=== PATIENT | female | born 2000 | race African-American/Black ===

== ENCOUNTER 2022-12-06 06:46 | Inpatient (IN) | payer OTHER ==
--- OUTSIDE RECORDS SUMMARY | 2022-12-06 06:49 | XMS REPORT | Continuity of Care Document ---
:2000 Author Organization [facility] t Address [address]. [address] [place] [address] Care Team Providers Name Role Phone No, Pcp [facility] Primary Care Physician Unavailable RICARDO AGUILERA Attending Clinician Unavailable NELLIE GARCIA Attending Clinician Unavailable RICARDO AGUILERA Admitting Clinician Unavailable SHEREE SIN Admitting Clinician Unavailable Problems Condition Condition Condition Status Onset Resolution Last Treating Co mments Source Name Details Category Date Date Treatment Clinician Date Acute Acute Disease [facility] Allergies, Adverse Reactions, Alerts This patient has no known allergies or adverse reactions. Social History Social Habit Start Date Stop Date Quantity Comments Source History [facility] Alcohol Std Drinks Medica l Center History [facility] Alcohol Binge Medical Sanjay ter History [facility] Alcohol Comment Medical C enter Tobacco use and 2019-06-30 2019-06-[address] [facility] exposure 00:00:00 [facility]:00 [facility] Alcohol intake 2019-06-30 2019-06-[address] [facility] 00:[facility] 00:[facility]:00 non-drinker of Medical Ce nter alcohol (finding) History SDOH 2019-06-30 2019-06-[address] [facility] Alcohol Frequency 00:00:00 00:00:00 Medical Center Sex Assigned At [address] 00[facility]00 [facility] Smoking Status Start Date Stop Date Source Never smoker [facility] Medications This patient has no known medications. Immunizations Ordered Immunization Filled Immunization Date Status Commen ts Source Name Name Lonnie Bae-QIV 2019-06-[address] [facility] PF 3YR+ ([id number]) 00:00:00 Medical Center Procedures This patient has no known procedures. Encounters Start End Encounter Admission Attending Care Care Encounter Source Date/Time Date/Time Type Type Clinicians Facility Department ID 2020-05-18 2020-05-20 Inpatient E [facility] [id number] 08:55:00 15:48:00 [facility] Results Test Description Test Time Test Comments Results Result Comments Source BLOOD CULTURE 2019-07-05 20:00:00 Test Item Value Reference Range Interpretation Comme nts CULTURE (BEAKER) (test code = 1095) No growth in 5 days BLOOD [id number] 20:00:00 Test Item Value Reference Range Interpretation Comments CULTURE (BEAKER) (test No growth in 5 days code = 1095) CBC W/PLT COUNT & AUTO [id number] 11:13:00 Test Item Value Reference Range Interpretation Comments WHITE BLOOD CELL COUNT (BEAKER) 11.7 K/ L 3.5-10.5 H (test code = 775) RED BLOOD CELL COUNT (BEAKER) 2.50 M/ L 3.93-5.22 L (test code = 761) HEMOGLOBIN (BEAKER) (test code = 8.7 GM/DL 11.2-15.7 L 410) HEMATOCRIT (BEAKER) (test code = 24.3 % 34.1-44.9 L 411) MEAN CORPUSCULAR VOLUME (BEAKER) 97.2 fL 79.4-94.8 H (test code = 753) MEAN CORPUSCULAR HEMOGLOBIN 34.8 pg 25.6-32.2 H (BEAKER) (test code = 751) MEAN CORPUSCULAR HEMOGLOBIN CONC 35.8 GM/DL 32.2-35.5 H (BEAKER) (test code = 752) RED CELL DISTRIBUTION WIDTH 17.5 % 11.7-14.4 H (BEAKER) (test code = 412) PLATELET COUNT (BEAKER) (test 323 K/CU MM 150-450 code = 756) MEAN PLATELET VOLUME (BEAKER) 10.9 fL 9.4-12.3 (test code = 754) NUCLEATED RED BLOOD CELLS 3 /100 WBC 0-0 H (BEAKER) (test code = 413) NEUTROPHILS RELATIVE PERCENT 62 % (BEAKER) (test code = 429) LYMPHOCYTES RELATIVE PERCENT 21 % (BEAKER) (test code = 430) MONOCYTES RELATIVE PERCENT 12 % (BEAKER) (test code = 431) EOSINOPHILS RELATIVE PERCENT 4 % (BEAKER) (test code = 432) BASOPHILS RELATIVE PERCENT 1 % (BEAKER) (test code = 437) NEUTROPHILS ABSOLUTE COUNT 7.23 K/ L 1.56-6.13 H (BEAKER) (test code = 670) LYMPHOCYTES ABSOLUTE COUNT 2.51 K/ L 1.18-3.74 (BEAKER) (test code = 414) MONOCYTES ABSOLUTE COUNT (BEAKER) 1.39 K/ L 0.24-0.36 H (test code = 415) EOSINOPHILS ABSOLUTE COUNT 0.50 K/ L 0.04-0.36 H (BEAKER) (test code = 416) BASOPHILS ABSOLUTE COUNT (BEAKER) 0.06 K/ L 0.01-0.08 (test code = 417) IMMATURE GRANULOCYTES-RELATIVE 0 % 0-1 PERCENT (BEAKER) (test code = 2801) COMPREHENSIVE METABOLIC [id number] 05:50:00 Test Item Value Reference Range Interpretation Comments TOTAL PROTEIN 6.3 gm/dL 6.0-8.3 (BEAKER) (test code = 770) ALBUMIN (BEAKER) 3.8 g/dL 3.5-5.0 (test code = 1145) ALKALINE PHOSPHATASE 53 U/L 40-150 (BEAKER) (test code = 346) BILIRUBIN TOTAL 2.4 mg/dL 0.2-1.2 H (BEAKER) (test code = 377) SODIUM (BEAKER) (test 139 meq/L 136-145 code = 381) POTASSIUM (BEAKER) 3.8 meq/L 3.5-5.1 (test code = 379) CHLORIDE (BEAKER) 110 meq/L 98-107 H (test code = 382) CO2 (BEAKER) (test 24 meq/L 22-29 code = 355) BLOOD UREA NITROGEN 8 mg/dL 7-21 (BEAKER) (test code = 354) CREATININE (BEAKER) 0.68 mg/dL 0.57-1.25 (test code = 358) GLUCOSE RANDOM 84 mg/dL 70-105 (BEAKER) (test code = 652) CALCIUM (BEAKER) 8.7 mg/dL 8.4-10.2 (test code = 697) AST (SGOT) (BEAKER) 25 U/L 5-34 (test code = 353) ALT (SGPT) (BEAKER) 14 U/L 6-55 (test code = 347) EGFR (BEAKER) (test 135 ESTIMATE D GFR IS code = 1092) mL/min/1.73 sq NOT ACCURA TE m CREATININE CLEARANCE IN PREDICTING GLOMERULAR FILTRATION RATE . ESTIMATED GFR I S NOT APPLICABLE FOR DIALYSIS PATIEN TS. Specimen slightly ictericCBC (HEMOGRAM ONLY)2019-07-01 05:46:00 Test Item Value Reference Range Interpretation Comments WHITE BLOOD CELL COUNT (BEAKER) 12.8 K/ L 3.5-10.5 H (test code = 775) RED BLOOD CELL COUNT (BEAKER) 1.74 M/ L 3.93-5.22 L (test code = 761) HEMOGLOBIN (BEAKER) (test code = 6.2 GM/DL 11.2-15.7 L 410) HEMATOCRIT (BEAKER) (test code = 17.3 % 34.1-44.9 L 411) MEAN CORPUSCULAR VOLUME (BEAKER) 99.4 fL 79.4-94.8 H (test code = 753) MEAN CORPUSCULAR HEMOGLOBIN 35.6 pg 25.6-32.2 H (BEAKER) (test code = 751) MEAN CORPUSCULAR HEMOGLOBIN CONC 35.8 GM/DL 32.2-35.5 H (BEAKER) (test code = 752) RED CELL DISTRIBUTION WIDTH 18.8 % 11.7-14.4 H (BEAKER) (test code = 412) PLATELET COUNT (BEAKER) (test 308 K/CU MM 150-450 code = 756) MEAN PLATELET VOLUME (BEAKER) 11.2 fL 9.4-12.3 (test code = 754) NUCLEATED RED BLOOD CELLS 4 /100 WBC 0-0 H (BEAKER) (test code = 413) RETICULOCYTE [id number] 05:34:00 Test Item Value Reference Range Interpretation Comments RETICULOCYTE COUNT PCT (BEAKER) (test 16.2 % 0.5-1.7 H code = 575) RAD, CHEST, PA OR AP, 1 [id number] 22:03:00Reason for exam:->Sickle cell crisisFINAL REPORT AP view of the chest dated 06/30/2019 CLINICAL INFORMATION: Sickle cell crisis Comment: Heart is normal in size. Pulmonary vasculature is unremarkable. Lungs are clear.No pulmonary infiltrate or pleural effusion is present. Impression: No active cardiopulmonary disease. Signed: Jack Valencia MDReport Verified Date/Time: 06/30/2019 22:03:51 Reading Location: [address] Consult Reading Room URINALYSIS W/ REFLEX URINE [id number] 16:15:00 Test Item Value Reference Range Interpretation Comments COLOR (BEAKER) (test code = 470) Yellow CLARITY (BEAKER) (test code = 469) Hazy SPECIFIC GRAVITY UA (BEAKER) (test 1.010 1.001-1.035 code = 468) PH UA (BEAKER) (test code = 467) 5.5 5.0-8.0 PROTEIN UA (BEAKER) (test code = Negative Negative 464) GLUCOSE UA (BEAKER) (test code = Negative Negative 365) KETONES UA (BEAKER) (test code = Negative Negative 371) BILIRUBIN UA (BEAKER) (test code = Negative Negative 462) BLOOD UA (BEAKER) (test code = 461) Negative Negative NITRITE UA (BEAKER) (test code = Negative Negative 465) LEUKOCYTE ESTERASE UA (BEAKER) Large Negative A (test code = 466) UROBILINOGEN UA (BEAKER) (test code 0.2 mg/dL 0.2-1.0 = 463) RBC UA (BEAKER) (test code = 519) 0 /HPF WBC UA (BEAKER) (test code = 520) 55 /HPF BACTERIA (BEAKER) (test code = 517) Many MUCUS (BEAKER) (test code = 1574) Rare SQUAMOUS EPITHELIAL (BEAKER) (test 2 /HPF code = 516) SOURCE(BEAKER) (test code = 2795) SCREEN, [id number] 16:15:00 Test Item Value Reference Range Interpretation Comments TEST URINE (BEAKER) (test Negative code = 583) CBC W/PLT COUNT & AUTO [id number] 09:42:00 Test Item Value Reference Range Interpretation Comments WHITE BLOOD CELL COUNT (BEAKER) 20.0 K/ L 3.5-10.5 H (test code = 775) RED BLOOD CELL COUNT (BEAKER) 2.08 M/ L 3.93-5.22 L (test code = 761) HEMOGLOBIN (BEAKER) (test code = 7.5 GM/DL 11.2-15.7 L 410) HEMATOCRIT (BEAKER) (test code = 20.7 % 34.1-44.9 L 411) MEAN CORPUSCULAR VOLUME (BEAKER) 99.5 fL 79.4-94.8 H (test code = 753) MEAN CORPUSCULAR HEMOGLOBIN 36.1 pg 25.6-32.2 H (BEAKER) (test code = 751) MEAN CORPUSCULAR HEMOGLOBIN CONC 36.2 GM/DL 32.2-35.5 H (BEAKER) (test code = 752) RED CELL DISTRIBUTION WIDTH 18.7 % 11.7-14.4 H (BEAKER) (test code = 412) PLATELET COUNT (BEAKER) (test 345 K/CU MM 150-450 code = 756) MEAN PLATELET VOLUME (BEAKER) 10.7 fL 9.4-12.3 (test code = 754) NUCLEATED RED BLOOD CELLS 1 /100 WBC 0-0 H (BEAKER) (test code = 413) (CELLAVISION MANUAL DIFF)2019-06-30 09:42:00 Test Item Value Reference Range Interpretation Comments NEUTROPHILS - REL 65 % (CELLAVISION)(BEAKER) (test code = 2816) LYMPHOCYTES - REL 19 % (CELLAVISION)(BEAKER) (test code = 2817) MONOCYTES - REL 12 % (CELLAVISION)(BEAKER) (test code = 2818) BASOPHILS - REL 1 % (CELLAVISION)(BEAKER) (test code = 2820) MYELOCYTES - REL 2 % 0-0 H (CELLAVISION)(BEAKER) (test code = 2822) NEUTROPHILS - ABS 13.00 K/ul 1.56-6.13 H (CELLAVISION)(BEAKER) (test code = 2830) LYMPHOCYTES - ABS 3.80 K/ul 1.18-3.74 H (CELLAVISION)(BEAKER) (test code = 2831) MONOCYTES - ABS 2.40 K/uL 0.24-0.36 H (CELLAVISION)(BEAKER) (test code = 2832) BASOPHILS - ABS 0.20 K/uL 0.01-0.08 H (CELLAVISION)(BEAKER) (test code = 2835) MYELOCYTES-ABS 0.40 K/uL 0.00-0.00 H (CELLAVISION)(BEAKER) (test code = 2837) TOTAL COUNTED (BEAKER) (test code 100 = 1351) MANUAL NRBC PER 100 CELLS 3 /100 WBC 0-0 H (BEAKER) (test code = 1353) WBC MORPHOLOGY (BEAKER) (test Normal code = 487) PLT MORPHOLOGY (BEAKER) (test Normal code = 486) POLYCHROMATOPHILLIC RBCS(BEAKER) 3+ many (test code = 478) ANISOCYTOSIS (BEAKER) (test code 1+ few = 961) MACROCYTES (BEAKER) (test code = 1+ few 964) POIKILOCYTES (BEAKER) (test code 1+ few = 966) TARGET CELLS (BEAKER) (test code 1+ few = 480) SICKLE CELLS (BEAKER) (test code 2+ moderate = 767) SCHULTZ-JOLLY BODIES (BEAKER) 1+ few (test code = 475) ARTIFACT (CELLAVISION)(BEAKER) Present (test code = 3432) PLATELET CONCENTRATION Adequate (CELLAVISION)(BEAKER) (test code = 3438) Received comment: User comments: Slide comments:BASIC METABOLIC [id number] 08:00:00 Test Item Value Reference Range Interpretation Comments SODIUM (BEAKER) (test 139 meq/L 136-145 code = 381) POTASSIUM (BEAKER) 4.0 meq/L 3.5-5.1 (test code = 379) CHLORIDE (BEAKER) 109 meq/L 98-107 H (test code = 382) CO2 (BEAKER) (test 24 meq/L 22-29 code = 355) BLOOD UREA NITROGEN 10 mg/dL 7-21 (BEAKER) (test code = 354) CREATININE (BEAKER) 0.65 mg/dL 0.57-1.25 (test code = 358) GLUCOSE RANDOM 97 mg/dL 70-105 (BEAKER) (test code = 652) CALCIUM (BEAKER) 9.5 mg/dL 8.4-10.2 (test code = 697) EGFR (BEAKER) (test INSUFFIC IENT CLINICAL code = 1092) DATA TO CALCULA TE ESTIMATED GFR. LACTATE DEHYDROGENASE (LDH)2019-06-30 07:49:00 Test Item Value Reference Range Interpretation Comments LACTATE DEHYDROGENASE (BEAKER) (test 445 U/L 125-220 H code = 635) RETICULOCYTE [id number] 07:38:00 Test Item Value Reference Range Interpretation Comments RETICULOCYTE COUNT PCT (BEAKER) (test 15.9 % 0.5-1.7 H code = 575)
[2022-12-06] MEDS ORDERED: ONDANSETRON 4 MG/2 ML VIAL ONE (07:27)
[2022-12-06] MEDS ORDERED: NA CHLORIDE 0.9% 1,000 ML ONE ×2 (07:27→14:18)
[2022-12-06] MEDS ORDERED: HYDROMORPHONE HCL 1 MG/ML INJ ONE ×5 (07:27→13:21)
[2022-12-06 07:52] LABS: Absolute Lymphocytes (CBC) 3.6 K/uL (0.7-4.9); Hematocrit 23.7 % (36.0-45.0); Lymphocytes % 15.1 % (15.3-44.8); MCV 100.8 fL (80-100); MPV 8.2 fL (7.6-11.3); RBC Red Blood Cell Count 2.35 M/uL (3.86-4.86)
[2022-12-06 08:02] LABS: Potassium 3.8 mmol/L (3.5-5.1); Troponin High Sensitivity 3.1 pg/mL (<58.9)
--- NOTE | 2022-12-06 08:08 | RAD REPORT ---
EXAM DESCRIPTION: RAD - Chest Single View - 12/06/2022 7:57 am CLINICAL HISTORY: CHEST PAIN COMPARISON: None FINDINGS: Lines: None. Lungs: Question some subtle mild bilateral airspace opacities present in the mid lungs and lung bases . Pleural: No significant pleural effusions or pneumothorax. Cardiac: The heart size is within normal limits. Mediastinum: Within normal limits. Bones: No acute fractures. Other: None IMPRESSION: Questionable subtle airspace disease bilaterally could reflect pneumonia.
[2022-12-06] MEDS ORDERED: NA CHLORIDE 0.9% 250 ML ONE ×3 (08:40→23:33)
--- NOTE | 2022-12-06 08:45 | ER ---
Nurse's Notes [facility] Name: Jan Krueger Age: 22 yrs Sex: Female : 2000 Arrival Date: 12/06/2022 Time: 06:49 Bed 8 Private MD: Diagnosis: Sickle-cell thalassemia with acute chest syndrome Presentation: 12/06 07:06 Chief complaint: Patient states: "I think I am in sickle cell crisis.". Coronavirus vc1 screen: Vaccine status: Patient reports receiving the 2nd dose of the covid vaccine. [employer] At this time, the client does not indicate any symptoms associated with coronavirus-19. Ebola Screen: Patient negative for fever greater than or equal to 101.5 degrees Fahrenheit, and additional compatible Ebola Virus Disease symptoms Patient denies exposure to infectious person. Patient denies travel to an Ebola-affected area in the 21 days before illness onset. No symptoms or risks identified at this time. Initial Sepsis Screen: Does the patient meet any 2 criteria? RR > 20 per min. HR > 90 bpm. Yes Does the patient have a suspected source of infection? No. Patient's initial sepsis screen is negative. Risk Assessment: Do you want to hurt yourself or someone else? Patient reports no desire to harm self or others. Onset of symptoms was December 05, 2022. 07:06 Method Of Arrival: Wheelchair vc1 07:06 Acuity: MAURISIO 3 vc1 Triage Assessment: 07:09 General: Appears uncomfortable, Behavior is calm, cooperative, appropriate for age. vc1 Pain: Complains of pain in "all over" Pain currently is 10 out of 10 on a pain scale. EENT: No deficits noted. No signs and/or symptoms were reported regarding the EENT system. Neuro: Level of Consciousness is obeys commands, Oriented to person, place, time, situation, Appropriate for age. Cardiovascular: No deficits noted. Respiratory: Airway is patent Respiratory effort is even, unlabored, Respiratory pattern is symmetrical, tachypnea. GI: No deficits noted. No signs and/or symptoms were reported involving the gastrointestinal system. : No deficits noted. No signs and/or symptoms were reported regarding the genitourinary system. Derm: No deficits noted. No signs and/or symptoms reported regarding the dermatologic system. Musculoskeletal: No deficits noted. No signs and/or symptoms reported regarding the musculoskeletal system. NEUROLOGY TECHNOLOGIST: 07:11 LMP N/A - control method vc1 Historical: - Allergies: 07:08 [place] (Prunus Persica); vc1 - PMHx: 07:08 Sickle Cell Crisis; vc1 - PSHx: 07:08 None; vc1 - Immunization history:: Client reports receiving the 2nd dose of the Covid vaccine. - Social history:: Smoking status: Patient denies any tobacco usage or history of. Screenin:11 Abuse screen: Denies threats or abuse. Nutritional screening: No deficits noted. vc1 Tuberculosis screening: No symptoms or risk factors identified. 07:25 [facility] ED Fall Risk Assessment (Adult) History of falling in the last 3 months, vg1 including since admission No falls in past 3 months (0 pts) Confusion or Disorientation No (0 pts) Intoxicated or Sedated No (0 pts) Impaired Gait No (0 pts) Mobility Assist Device Used No (0 pt) Altered Elimination No (0 pt) Score/Fall Risk Level 0 - 2 = Low Risk Oriented to surroundings, Maintained a safe environment, Educated pt \\T\\ family on fall prevention, incl call for assistance when getting out of bed, Assessed \\T\\ reinforced patient's understanding of fall precautions. Assessment: 07:25 General: Appears uncomfortable, Behavior is cooperative, crying. Pain: Complains of vg1 pain in generalized body pain Pain currently is 10 out of 10 on a pain scale. Neuro: Level of Consciousness is awake, alert, obeys commands, Oriented to person, place, time, situation. Cardiovascular: Patient's skin is warm and dry. Respiratory: Airway is patent Respiratory effort is even, unlabored. GI: Abdomen is flat, Patient currently denies nausea, vomiting. : No signs and/or symptoms were reported regarding the genitourinary system. EENT: No signs and/or symptoms were reported regarding the EENT system. EENT: No signs and/or symptoms were reported regarding the EENT system. Derm: Skin is pink, warm \\T\\ dry. Musculoskeletal: Circulation, motion, and sensation intact. 08:15 Reassessment: Pt stated generalized body pain is 10/10; provider aware. vg1 08:47 Reassessment: Family stated pt was recently seen at urgent care and was prescribed vg1 amoxicillin for cough, last dose was yesterday and was negative for covid/flu/rsv; provider notified. 09:24 Reassessment: Patient appears in no apparent distress at this time. No changes from vg1 previously documented assessment. Patient and/or family updated on plan of care and expected duration. Pain level reassessed. Patient is alert, oriented x 3, equal unlabored respirations, skin warm/dry/pink. 10:36 Reassessment: Patient appears in no apparent distress at this time. No changes from vg1 previously documented assessment. Patient and/or family updated on plan of care and expected duration. Pain level reassessed. Patient is alert, oriented x 3, equal unlabored respirations, skin warm/dry/pink. 10:50 Reassessment: Pt stated generalized body pain, feels like "pins and needles" and vg1 "pressure"; provider notified. 11:40 Reassessment: Patient appears in no apparent distress at this time. No changes from vg1 previously documented assessment. Patient is alert, oriented x 3, equal unlabored respirations, skin warm/dry/pink. lab stated pt blood has antibodies and it needs to be sent to [place]; pt aware of wait time. 11:50 Reassessment:. Reassessment: HR 165; Pt stated hip pain; provider notified. New orders vg1 for Dilaudid 1 mg IVP x1. General: Appears distressed, Behavior is crying. 13:15 Reassessment: No changes from previously documented assessment. Patient is alert, vg1 oriented x 3, equal unlabored respirations, skin warm/dry/pink. Reassessment: HR 150; pain 10/10, BOB hips, provider notified. General: Appears distressed, Behavior is crying. Vital Signs: 07:06 BP 137 / 92; Pulse 97; Resp 24; Temp 97.4; Pulse Ox 95% on R/A; Weight 56.7 kg; Height vc1 5 ft. 2 in. (157.48 cm); Pain 10/10; 07:30 BP 128 / 90; Pulse 79; Resp 14; Pulse Ox 98% on R/A; vg1 08:00 BP 126 / 80; Pulse 69; Resp 14; Temp 98.4(O); Pulse Ox 97% on R/A; vg1 08:30 BP 132 / 77; Pulse 80; Resp 15; Pulse Ox 98% on R/A; vg1 09:30 BP 127 / 86; Pulse 93; Resp 14; Pulse Ox 98% on R/A; vg1 10:30 BP 121 / 83; Pulse 96; Resp 14; Pulse Ox 97% on R/A; vg1 11:30 BP 125 / 78; Pulse 89; Resp 14; Pulse Ox 98% on R/A; vg1 12:30 BP 113 / 77; Pulse 97; Resp 18; Pulse Ox 97% on R/A; vg1 13:00 BP 123 / 82; Pulse 101; Resp 12; Pulse Ox 96% on R/A; vg1 07:06 Body Mass Index 22.86 (56.70 kg, 157.48 cm) vc1 ED Course: 06:49 Patient arrived in ED. jj6 07:05 Lorenzo Fuller MD is Attending Physician. sp3 07:08 Triage completed. vc1 07:11 Arm band placed on right wrist. vc1 07:19 Celestina Waller, RN is Primary Nurse. vg1 07:25 Patient has correct armband on for positive identification. Bed in low position. Call vg1 light in reach. Side rails up X 1. Client placed on continuous cardiac and pulse oximetry monitoring. NIBP monitoring applied. 07:25 Initial lab(s) drawn, by me, sent to lab. Inserted saline lock: 20 gauge in right vg1 antecubital area, using aseptic technique. Blood collected. 08:44 Syed Pineda MD is Hospitalizing Provider. sp3 09:05 First set of blood cultures drawn by me. ss 09:08 Inserted saline lock: 22 gauge in left forearm, using aseptic technique. Blood vg1 collected. 09:08 Second set of blood cultures drawn by me. vg1 09:46 Lab(s) recollected, by me, sent to lab. vg1 14:38 No provider procedures requiring assistance completed. Patient admitted, IV remains in vg1 place. Administered Medications: 07:31 Drug: NS 0.9% 1000 ml Route: IV; Rate: 1 bolus; Site: right antecubital; vg1 08:23 Follow up: IV Status: Infusion continued; IV Intake: 1000ml vg1 07:31 Drug: Zofran (Ondansetron) 4 mg Route: IVP; Site: right antecubital; vg1 08:23 Follow up: Response: No adverse reaction vg1 07:33 Drug: Dilaudid (HYDROmorphone) 1 mg Route: IVP; Site: right antecubital; vg1 08:23 Follow up: Response: No adverse reaction; No change in condition vg1 08:21 Drug: Dilaudid (HYDROmorphone) 1 mg Route: IVP; Site: right antecubital; vg1 15:09 Follow up: Response: No adverse reaction; No change in condition vg1 09:18 Drug: Rocephin - (cefTRIAXone) 1 grams Route: IVPB; Infused Over: 30 mins; Site: left vg1 forearm; 09:45 Follow up: IV Status: Completed infusion; IV Intake: 50ml vg1 09:41 Drug: Zithromax (azithromycin) 500 mg Route: IVPB; Infused Over: 1 hrs; Site: left vg1 forearm; 10:45 Follow up: IV Status: Infusion continued; IV Intake: 250ml vg1 10:54 Drug: Dilaudid (HYDROmorphone) 1 mg Route: IVP; Site: right antecubital; vg1 11:45 Follow up: Response: No adverse reaction; No change in condition vg1 11:54 Drug: Dilaudid (HYDROmorphone) 1 mg Route: IVP; Site: right antecubital; vg1 13:15 Follow up: Response: No adverse reaction; No change in condition vg1 13:19 Drug: Dilaudid (HYDROmorphone) 1 mg Route: IVP; Site: right antecubital; vg1 15:08 Follow up: Response: No adverse reaction; Marked relief of symptoms vg1 Medication: 07:11 VIS not applicable for this client. vc1 Intake: 08:23 IV: 1000ml; Total: 1000ml. vg1 09:45 IV: 50ml; Total: 1050ml. vg1 10:45 IV: 250ml; Total: 1300ml. vg1 Outcome: 08:44 Decision to Hospitalize by Provider. sp3 14:37 Admitted to Med/surg accompanied by tech, via wheelchair, room 218, with chart, Report vg1 called to Debbi CALHOUN 14:37 Condition: good 14:37 Instructed on the need for admit. 15:08 Patient left the ED. vg1 Signatures: Gertrude Polanco RN RN Celestina Samuel RN RN vg1 Lorenzo Fuller MD MD sp3 Kate Morse jj6 Kirsten Villa, RN RN vc1 Corrections: (The following items were deleted from the chart) 08:26 08:00 BP 126 / 80; Pulse 69bpm; Resp 14bpm; Pulse Ox 97% RA; vg1 vg1 11:58 11:50 Reassessment: Pt stated hip pain; provider notified. New orders for Dilaudid 1 mg vg1 IVP x1 vg1 13:24 13:15 Reassessment: pain 07/14, BOB hips, provider notified. vg1 vg1
--- NOTE | 2022-12-06 08:46 | EDPHYS ---
Physician Documentation [facility] Name: Jan Krueger Age: 22 yrs Sex: Female : 2000 Arrival Date: 12/06/2022 Time: 06:49 Bed 8 Private MD: ED Physician Lorenzo Fuller HPI: 12/06 08:20 This 22 yrs old Black Female presents to ER via Wheelchair with complaints of Pain All sp3 Over. 08:20 22-year-old female with a history of sickle cell disease presents to the ED with chief sp3 complaint pain all over particularly in her extremities that started yesterday. Patient is here visiting from [place] prior to arrival has taken acetaminophen, ibuprofen, and p.o. morphine that she has prescribed. Her symptoms were not controlled so she presents to the ED for further evaluation. She denies any shortness of breath or asia chest pain. Also denies fever, nausea, vomiting, diarrhea, skin rash, bleeding, or any other symptoms on ROS at this time.. 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 - Social history:: Smoking status: Patient denies any tobacco usage or history of. ROS: 08:21 Constitutional: Negative for fever, chills, and weight loss, Eyes: Negative for injury, sp3 pain, redness, and discharge, ENT: Negative for injury, pain, and discharge, Cardiovascular: Negative for chest pain, palpitations, and edema, Respiratory: Negative for shortness of breath, cough, wheezing, and pleuritic chest pain, Neuro: Negative for headache, weakness, numbness, tingling, and seizure. 08:21 All other systems are negative. Exam: 08:21 Constitutional: This is a well developed, well nourished patient who is awake, alert, sp3 and in no acute distress. Head/Face: Normocephalic, atraumatic. Eyes: Pupils equal round and reactive to light, extra-ocular motions intact. Lids and lashes normal. Conjunctiva and sclera are non-icteric and not injected. Cornea within normal limits. Periorbital areas with no swelling, redness, or edema. ENT: Nares patent. No nasal discharge, no septal abnormalities noted. External auditory canals are clear. Oropharynx with no redness, swelling, or masses, exudates, or evidence of obstruction, uvula midline. Mucous membranes moist. Neck: Trachea midline, no thyromegaly or masses palpated, and no cervical lymphadenopathy. Supple, full range of motion without nuchal rigidity, or vertebral point tenderness. No Meningismus. Chest/axilla: Normal chest wall appearance and motion. Nontender with no deformity. No lesions are appreciated. Cardiovascular: Regular rate and rhythm with a normal S1 and S2. No gallops, murmurs, or rubs. Normal PMI, no JVD. No pulse deficits. Respiratory: Lungs have equal breath sounds bilaterally, clear to auscultation and percussion. No rales, rhonchi or wheezes noted. No increased work of breathing, no retractions or nasal flaring. Abdomen/GI: Soft, non-tender, with normal bowel sounds. No distension or tympany. No guarding or rebound. No evidence of tenderness throughout. Back: No spinal tenderness. No costovertebral tenderness. Full range of motion. Skin: Warm, dry with normal turgor. Normal color with no rashes, no lesions, and no evidence of cellulitis. Neuro: Awake and alert, GCS 15, oriented to person, place, time, and situation. Cranial nerves II-XII grossly intact. Motor strength 5/5 in all extremities. Sensory grossly intact. Cerebellar exam normal. Normal gait. 08:21 Musculoskeletal/extremity: There is diffuse muscular tenderness in all 4 extremities.. Vital Signs: 07:06 BP 137 / 92; Pulse 97; Resp 24; Temp 97.4; Pulse Ox 95% on R/A; Weight 56.7 kg; Height vc1 5 ft. 2 in. (157.48 cm); Pain 10/10; 07:30 BP 128 / 90; Pulse 79; Resp 14; Pulse Ox 98% on R/A; vg1 08:00 BP 126 / 80; Pulse 69; Resp 14; Temp 98.4(O); Pulse Ox 97% on R/A; vg1 08:30 BP 132 / 77; Pulse 80; Resp 15; Pulse Ox 98% on R/A; vg1 09:30 BP 127 / 86; Pulse 93; Resp 14; Pulse Ox 98% on R/A; vg1 10:30 BP 121 / 83; Pulse 96; Resp 14; Pulse Ox 97% on R/A; vg1 11:30 BP 125 / 78; Pulse 89; Resp 14; Pulse Ox 98% on R/A; vg1 12:30 BP 113 / 77; Pulse 97; Resp 18; Pulse Ox 97% on R/A; vg1 13:00 BP 123 / 82; Pulse 101; Resp 12; Pulse Ox 96% on R/A; vg1 07:06 Body Mass Index 22.86 (56.70 kg, 157.48 cm) vc1 MDM: 07:11 Patient medically screened. sp3 08:22 Data reviewed: vital signs, nurses notes. ED course: 22-year-old female with sickle sp3 cell disease now in crisis. We will administer IV fluids, chest x-ray, Dilaudid as needed, and check laboratory values including reticulocyte count. Disposition to be based on work-up and patient course.. 08:43 ED course: Patient is getting further Dilaudid IV as needed. Reticulocyte count is sp3 5.6%, hemoglobin of 8 and WBC of 24. Chest x-ray demonstrates infiltrates bilaterally and given her continued pain presentation, we will diagnose her with acute chest syndrome and transfuse her 1 unit PRBC, antibiotics, IV fluids, and continue pain medication. I discussed this with the inpatient team who will be taking over her care.. 12/06 07:10 Order name: Basic Metabolic Panel 3 12/06 07:10 Order name: CBC with Diff 3 12/06 07:10 Order name: Troponin HS 3 12/06 07:10 Order name: XRAY Chest (1 view) 3 12/06 07:10 Order name: EKG; Complete Time: 07:12 3 12/06 07:10 Order name: Cardiac monitoring; Complete Time: 07:36 3 12/06 07:10 Order name: EKG - Nurse/Tech; Complete Time: 07:36 3 12/06 07:10 Order name: IV Saline Lock; Complete Time: 07:36 3 12/06 07:10 Order name: Labs collected and sent; Complete Time: 07:36 3 12/06 07:10 Order name: Retic Count sp3 12/06 08:02 Order name: Basic Metabolic Panel; Complete Time: 08:05 EDMS 12/06 08:02 Order name: Troponin High Sensitivity; Complete Time: 08:05 EDMS 12/06 08:08 Order name: RAD; Complete Time: 08:23 EDMS 12/06 08:13 Order name: CBC with Automated Diff EDMS 12/06 08:13 Order name: Retic Count EDMS 12/06 08:35 Order name: Blood Culture Adult (2) sp3 12/06 08:35 Order name: Lactate w/ 2H reflex if indic. sp3 12/06 08:36 Order name: Type And Screen sp3 12/06 08:54 Order name: SARS-COV-2 RT PCR eb 12/06 09:34 Order name: Labs - recollect needed: recollect T\T\S hemolyzed per Neyda; Complete eb Time: 09:45 12/06 09:52 Order name: Lactate w/ 2H reflex if indic. EDMS 12/06 10:01 Order name: Manual Differential EDMS 12/06 10:38 Order name: ABO/RH no charge EDMS 12/06 10:55 Order name: SARS-COV-2 RT PCR EDMS 12/06 11:48 Order name: Type and Screen EDMS Administered Medications: 07:31 Drug: NS 0.9% 1000 ml Route: IV; Rate: 1 bolus; Site: right antecubital; vg1 08:23 Follow up: IV Status: Infusion continued; IV Intake: 1000ml vg1 07:31 Drug: Zofran (Ondansetron) 4 mg Route: IVP; Site: right antecubital; vg1 08:23 Follow up: Response: No adverse reaction vg1 07:33 Drug: Dilaudid (HYDROmorphone) 1 mg Route: IVP; Site: right antecubital; vg1 08:23 Follow up: Response: No adverse reaction; No change in condition vg1 08:21 Drug: Dilaudid (HYDROmorphone) 1 mg Route: IVP; Site: right antecubital; vg1 15:09 Follow up: Response: No adverse reaction; No change in condition vg1 09:18 Drug: Rocephin - (cefTRIAXone) 1 grams Route: IVPB; Infused Over: 30 mins; Site: left vg1 forearm; 09:45 Follow up: IV Status: Completed infusion; IV Intake: 50ml vg1 09:41 Drug: Zithromax (azithromycin) 500 mg Route: IVPB; Infused Over: 1 hrs; Site: left vg1 forearm; 10:45 Follow up: IV Status: Infusion continued; IV Intake: 250ml vg1 10:54 Drug: Dilaudid (HYDROmorphone) 1 mg Route: IVP; Site: right antecubital; vg1 11:45 Follow up: Response: No adverse reaction; No change in condition vg1 11:54 Drug: Dilaudid (HYDROmorphone) 1 mg Route: IVP; Site: right antecubital; vg1 13:15 Follow up: Response: No adverse reaction; No change in condition vg1 13:19 Drug: Dilaudid (HYDROmorphone) 1 mg Route: IVP; Site: right antecubital; vg1 15:08 Follow up: Response: No adverse reaction; Marked relief of symptoms vg1 Disposition Summary: 12/06/22 08:44 Hospitalization Ordered Hospitalization Status: Observation sp3 Provider: Syed Pineda sp3 Location: Telemetry/[facility] (observation) sp3 Condition: Stable sp3 Problem: an acute exacerbation sp3 Symptoms: have worsened sp3 Bed/Room Type: Standard sp3 Room Assignment: 218(12/06/22 14:11) eb Diagnosis - Sickle-cell thalassemia with acute chest syndrome sp3 Forms: - Medication Reconciliation Form sp3 - SBAR form sp3 Signatures: Dispatcher [employer] EDKaylyn Gutierrez Victoria RN RN vg1 Lorenzo Fuller MD MD sp3 Kirsten Villa RN RN vc1 Corrections: (The following items were deleted from the chart) 14:11 08:44 sp3 eb
[2022-12-06] MEDS: CEFTRIAXONE 1,000 MG in NA CHLORIDE 0.9% 50 ML IVPB SCH (09:00)
[2022-12-06] MEDS ORDERED: CEFTRIAXONE 1000 MG/VIAL ONE (09:00)
[2022-12-06] MEDS ORDERED: AZITHROMYCIN 500 MG INJ IVPB ONE (09:00)
[2022-12-06] MEDS ORDERED: NA CHLORIDE 0.9% 50 ML ONE (09:01)
[2022-12-06] MEDS ORDERED: ONDANSETRON 4 MG (ODT) TAB PO PRN (09:08)
--- NOTE | 2022-12-06 09:14 | P.HP ---
Certification for Inpatient With expected LOS: >2 Midnights Practitioner: I am a practitioner with admitting privileges, knowledge of patient current condition, hospital course, and medical plan of care. Services: Services provided to patient in accordance with Admission requirements found in Title 42 Section 412.3 of the Code of Federal Regulations Patient History Date of Service: 12/06/22 Reason for admission: Pain all over History of Present Illness: Patient is 22 years of age sent to the emergency room complaining of pain in all her extremities patient visiting from [place] prior to arrival had taken acetaminophen and Motrin also has p.o. morphine prescribed denies any shortness of breath or chest pain admitted for sickle cell crisis/this is rather acute came on within a day his crisis may have been precipitated by her recent weight visit to the [place] he also takes a morphine 10 mg daily as needed Allergies peach Allergy (Unknown, Unverified 12/06/22 09:21) UNKNOWN - Past Medical/Surgical History -: Sickle cell crisis - Social History Smoking Status: Unknown if ever smoked Physical Examination - Studies Laboratory Data (last 24 hrs) 12/06/22 07:29: WBC 24.00 H*, Hgb 8.0 L, Hct 23.7 L, Plt Count 310 12/06/22 07:29: Sodium 140, Potassium 3.8, BUN 11, Creatinine 0.71, Glucose 116 H Assessment and Plan - Problems (Diagnosis) (1) Sickle cell crisis Current Visit: Yes Status: Acute Plan: Patient is 22 years of age with a history of sickle cell anemia and admitted with extremities pain with sickle cell crisis she is visiting from [place] patient has a microcytic anemia elevated reticulocyte count will be transfused 1 unit admit for IV fluids pain relief chest x-ray is clear last patient also has a 10 mg of morphine that she takes as needed last crisis was years ago this crisis may have been precipitated by her visit to the [place] - Advance Directives Does patient have a Living Will: No Does patient have a Durable POA for Healthcare: No
[2022-12-06 09:59] LABS: Blood Morphology Comment NOTED (NOT SEEN); Platelet Estimate ADEQ; Platelets, Giant FEW PRESENT
[2022-12-06 10:00] LABS: Anisocytosis 1+; Macrocytosis 1+; Polychromasia 2+
[2022-12-06] MEDS: NA CHLORIDE 0.9% 1,000 ML IV SCH ×2 (10:00→17:59)
[2022-12-06] MEDS: MORPHINE *EXTENDED RELEASE* 15 MG TAB PO SCH ×2 (11:00→21:01)
[2022-12-06] MEDS ORDERED: MORPHINE 15 MG IR TAB PO ONE (14:19)
[2022-12-06] MEDS: MORPHINE 4 MG/ML SYR IV PRN ×2 (15:17→19:31)
[2022-12-06 15:42] VITALS: BMI 22.8
[2022-12-06] MEDS ORDERED: MORPHINE *EXTENDED RELEASE* 15 MG TAB PO ONE (16:25)
[2022-12-06] MEDS: ACETAMINOPHEN 325 MG TABLET PO PRN (21:02)
[2022-12-07] MEDS: MORPHINE 4 MG/ML SYR IV PRN ×2 (01:19→05:22)
[2022-12-07] MEDS: NA CHLORIDE 0.9% 1,000 ML IV SCH ×4 (03:44→23:50)
[2022-12-07 05:39] LABS: Absolute Lymphocytes (CBC) 2.6 K/uL (0.7-4.9); Hematocrit 26.9 % (36.0-45.0); MPV 8.6 fL (7.6-11.3); RBC Red Blood Cell Count 2.74 M/uL (3.86-4.86)
[2022-12-07 05:58] LABS: Albumin 3.8 g/dL (3.4-5.0); Bilirubin Total 2.9 mg/dL (0.2-1.0); Potassium 3.7 mmol/L (3.5-5.1); Protein, Total 7.4 g/dL (6.4-8.2)
[2022-12-07] MEDS: CEFTRIAXONE 1,000 MG in NA CHLORIDE 0.9% 50 ML IVPB SCH (08:47)
[2022-12-07] MEDS: MORPHINE *EXTENDED RELEASE* 15 MG TAB PO SCH ×2 (08:48→20:24)
--- NOTE | 2022-12-07 09:05 | P.PN ---
Subjective Date of Service: 12/07/22 Chief Complaint: Sickle cell crisis Patient still complaining of extremity pain spite getting narcotics still feels uncomfortable Review of Systems Musculoskeletal: Other (Generalized pain in her extremities) Physical Examination - Vital Signs Temperature: 99.3 F Blood Pressure: 160/92 Pulse: 124 Respirations: 20 Pulse Ox (%): 96 - Physical Exam General: Severe distress Neck: Supple Respiratory: Clear to auscultation bilaterally Cardiovascular: No edema, Regular rate/rhythm, Normal S1 S2 Gastrointestinal: Normal bowel sounds, Soft and benign Assessment And Plan - Current Problems (Diagnosis) (1) Sickle cell crisis Current Visit: Yes Status: Acute Plan: Patient admitted with sickle cell crisis still has significant amount of pain in her extremity continue with antibiotics IV fluids white count is declining changed to Dilaudid patient is on p.o. morphine Labs reviewed
[2022-12-07] MEDS: HYDROMORPHONE HCL 2 MG/ML inj IV PRN ×4 (09:24→22:01)
[2022-12-07 10:48] LABS: Urine Bacteria <20 /HPF (<20); Urine Bilirubin NEGATIVE (Negative); Urine Blood 3+ (OVER) (Negative); Urine Clarity Clear (Clear); Urine Color Colorless (Yellow); Urine Glucose NEGATIVE (Negative); Urine Mucus Slight /HPF (None Seen); Urine Protein TRACE (Negative); Urine RBC <5 /HPF (None Seen); Urine Urobilinogen Normal (Normal); Urine pH 6.5 (5.0-7.0)
[2022-12-07] MEDS: ACETAMINOPHEN 325 MG TABLET PO PRN (16:19)
[2022-12-08] MEDS: ACETAMINOPHEN 325 MG TABLET PO PRN (00:20)
[2022-12-08] MEDS: NA CHLORIDE 0.9% 1,000 ML IV SCH (02:00)
[2022-12-08] MEDS: HYDROMORPHONE HCL 2 MG/ML inj IV PRN (04:20)
--- NOTE | 2022-12-08 08:05 | RAD REPORT ---
EXAM DES[facility]22 5:25 am CLINICAL HISTORY: Follow up the Pneumonia COMPARISON: Abdomen Wo Cont dated 2Abdomen Pelvis W Contrast dated 10/14/2022; Renal Ultras ound-Complete dated 3Chest Single View dated 12/06/2022 TECHNIQUE: Portable AP view of the chest. FINDINGS: The lungs show no discrete consolidation. Bibasilar minimal streaky opacities, stable, may relate to atelectasis or early pneumonia. No pneumothorax or effusion. The cardiomediastinal contour s are unremarkable. IMPRESSION: Stable findings, as above.
[2022-12-08 08:36] VITALS: BP 129/75; TEMP 99
[2022-12-08 08:55] LABS: Hematocrit 25.4 % (36.0-45.0); MCV 101.2 fL (80-100); MPV 8.6 fL (7.6-11.3); RBC Red Blood Cell Count 2.51 M/uL (3.86-4.86)
[2022-12-08] MEDS ORDERED: MORPHINE *EXTENDED RELEASE* 15 MG TAB PO SCH (09:00)
[2022-12-08 10:22] VITALS: O2SAT 90
--- NOTE | 2022-12-08 12:06 | P.DS ---
Admission Date: 12/06/22 Discharge Date: 12/08/22 Disposition: ROUTINE DISCHARGE Discharge Condition: FAIR Reason for Admission: Sickle cell crisis - Problems (1) Sickle cell crisis Current Visit: Yes Status: Acute Brief History of Present Illness: Patient is 22 years of age sent to the emergency room complaining of pain in all her extremities patient visiting from [place] prior to arrival had taken acetaminophen and Motrin also has p.o. morphine prescribed denies any shortness of breath or chest pain admitted for sickle cell crisis/this is rather acute came on within a day his crisis may have been precipitated [place] he also takes a morphine 10 mg daily as needed Hospital Course: Patient is 72 years of age visiting from [place] admitted with sickle cell crisis she was treated with IV fluids antibiotics and pain medication at the time of discharge alert oriented responsive ambulating brother at the bedside her pain had improved significantly patient does have extended release morphine she is to fly back to [facility] on Thursday and to contact her primary care physician for more narcotic chest x-ray clear blood cultures negative patient was transfused 1 unit of packed red blood cells in the emergency room on examination alert oriented responsive cooperative vital signs all stable chest clear patient's white count was declined Vital Signs/Physical Exam: Temp Pulse Resp BP Pulse Ox 99.0 F 123 H 24 H 129/75 98 12/08/22 08:00 12/08/22 08:00 12/08/22 08:55 12/08/22 08:00 12/08/22 08:55 Laboratory Data at Discharge: WBC 19.50 K/uL (4.3-10.9) H 12/08/22 08:08 Hgb 8.7 g/dL (12.0-15.0) L 12/08/22 08:08 Hct 25.4 % (36.0-45.0) L 12/08/22 08:08 Plt Count 243 K/uL (152-406) 12/08/22 08:08 Sodium 136 mmol/L (136-145) 12/07/22 05:11 Potassium 3.7 mmol/L (3.5-5.1) 12/07/22 05:11 BUN 7 mg/dL (7-18) 12/07/22 05:11 Creatinine 0.60 mg/dL (0.55-1.02) 12/07/22 05:11 Glucose 125 mg/dL (74-106) H 12/07/22 05:11 Total Bilirubin 2.9 mg/dL (0.2-1.0) H 12/07/22 05:11 AST 43 U/L (15-37) H 12/07/22 05:11 ALT 76 U/L (13-56) H 12/07/22 05:11 Alkaline Phosphatase 65 U/L (45-117) 12/07/22 05:11 Home Medications: Ibuprofen 1 tab PO Q6H PRN 12/07/22 Morphine Sulfate [Morphine Sulfate Cr] 1 tab PO Q4H PRN 12/07/22 Physician Discharge Instructions: Patient to resume her home pain medication and to ask her primary care doctor for narcotic prescriptions Diet: Regular Activity: Ad prachi
--- NOTE | 2022-12-08 16:45 | EKG ---
Test Date: 2022-12-06 Test Time: 07:29:46 Sanitation Worker Cleaning Machinery: NAZ MEASUREMENT RESULTS: Intervals: Rate: 87 WV: 140 QRSD: 84 QT: 368 QTc: 442 [place]: P: 76 WV: 140 QRS: 72 T: 67 INTERPRETIVE STATEMENTS: Normal sinus rhythm Normal ECG No previous ECG available for comparison Electronically Signed On 12-08-22 16:39:12 PROFESSOR OF FOOD BIOCHEMISTRY by Jay Palm
== END 2022-12-08 12:30 | disposition home or self-care (01) | DRG 812 ==
LOC: ER 06:46 → ERHOLD 09:08 → 2ND 14:35
PROVIDERS: ADMIT Internal Medicine Sleep Medicine; ATTEND Internal Medicine Sleep Medicine
PROC: 30233N1 Transfusion of Nonautologous Red Blood Cells into Peripheral Vein, Percutaneous Approach (ICD-10-PCS; principal; 2022-12-06)
DX: D57.00 Hb-SS disease with crisis, unspecified (principal); Z20.822 Contact with and (suspected) exposure to COVID-19; Z79.891 Long term (current) use of opiate analgesic; Z91.018 Allergy to other foods
CPT/HCPCS: 36415; 71045; 80048; 80053; 81001; 83605; 84484; 85025; 85027; 85044; 86850; 86900; 86901; 87040; 93005; 96361; 96365; 96375; 99285; J0456; J1170; J2405; J7030; J7050; P9016; U0003